=== PATIENT | female | born 1975 | race Hispanic/Latino ===

== ENCOUNTER 2017-01-12 00:09 | Inpatient (IN) | payer OTHER ==
[2017-01-11 00:21] VITALS: BP 152/77
[~2017-01-12] VITALS: Ht 149.9 cm; Wt 72.6 kg
[2017-01-12] VITALS (18 sets, daily range): BP systolic 127–196; BP diastolic 38–89
--- NOTE | 2017-01-12 00:39 | NUR ---
0021 Patient arrived on unit and escorted to room 209. Pt instructed to provide urine sample for UA and DOA and change into gown. Sai Arboleda RNC noticed patient stickers/face sheet different from records in that last name on stickers is Ramirez and prenatals have Robyn. Pt states correct spelling is Robyn. RN call to admitting at 0040 re: same.
[2017-01-12 01:38] LABS: HEMATOCRIT 30.8 % (37.0-47.0); HEMOGLOBIN 10.5 g/dl (12.0-16.0); IMMATURE GRANULOCYTES 0.5 % (0.0-1.0); MEAN CELL VOLUME 87.5 fL CALC (80.0-100.0); MEAN CORPUSCULAR HGB 29.8 pG CALC (26.0-32.0); MEAN CORPUSCULAR HGB CONC 34.1 g/L CALC (32.0-36.0); NEUT# 4.94 thou/uL (2.00-7.15); RED BLOOD COUNT 3.52 mill/uL (4.20-5.60); RED CELL DISTRI WIDTH 13.7 % (11.5-15.5)
[2017-01-12 01:39] LABS: URINE BILIRUBIN - DIPSTICK NEGATIVE (NEGATIVE); URINE BLOOD DIPSTICK LARGE (NEGATIVE); URINE COLOR YELLOW; URINE GLUCOSE - DIPSTICK NEGATIVE (NEGATIVE); URINE KETONE NEGATIVE (NEGATIVE); URINE LEUK ESTERASE SMALL (Negative); URINE NITRITE - DIPSTICK POSITIVE (Negative); URINE PROTEIN - DIPSTICK 30 mg/dL (NEG-TRACE); URINE SPECIFIC GRAVITY 1.025; URINE UROBILINOGEN - DIPSTICK 0.2 E.U./dL (0.2)
[2017-01-12 01:44] LABS: BARBITURATES NEGATIVE (NEGATIVE); COCAINE NEGATIVE (NEGATIVE); METHADONE NEGATIVE (NEGATIVE); OXCYCODONE NEGATIVE (NEGATIVE); TETRAHYDROCANNABIONOL NEGATIVE (NEGATIVE); TRICYLIC ANTIDEPRESSANTS NEGATIVE (NEGATIVE)
--- NOTE | 2017-01-12 01:55 | NUR ---
EFM REMOVED. REACTIVE NST. FHT BASELINE 130 WITH MODERATE VARIABILITY AND ACCELS, NO DECELS NOTED. PT HAS OCCASIONAL CONTRACTIONS WITH IRRITIBILITY. PT DENIES ANY CONTRACTIONS OR PAIN. PT HAS NOT HAD ANY FOOD OR DRINK SINCE 1500. NOTED ELEVATED BP. PT DENIES ANY HEADACHE, EPIGASTRIC PAIN, DTR +2. SHAVED LOWER ABDOMEN. HIBICLENS SCRUB PERFORMED. ASSESSMENT COMPLETED CHARTED. SIGNIFICANT OTHER SLEEPING IN RECLINER. PT DENIES ANY NEEDS. ENCOURAGED PT TO CALL WITH NEEDS OR CONCERNS.
[2017-01-12 02:00] LABS: URINE BACTERIA MANY hpf; URINE CLARITY SL CLOUDY; URINE RBC 25-50 RBC/hpf (0-5); URINE SQUAMOUS EPITHELIAL CELL FEW EPI/hpf (0-FEW)
[2017-01-12 02:09] LABS: ALKALINE PHOSPHATASE 126 u/l (38-126); ANION GAP 14 (6-22 (CALC)); BILIRUBIN, TOTAL 0.3 mg/dL (0.0-1.4); BUN 8 mg/dL (7-17); BUN/CREATININE RATIO 20 (12-20 (CALC)); CALCIUM 9.2 mg/dL (8.4-10.2); CARBON DIOXIDE 18 mmol/l (22-30); CHLORIDE 112 mmol/l (95-108); CREATININE 0.4 mg/dL (0.5-1.0); GFR > 60 ML/MIN (>=60 (CALC)); GFR FOR AFR.AMER. > 60 ML/MIN (>=60 (CALC)); GLUCOSE 79 mg/dL (65-105); SGOT/AST 13 u/l (14-36); SGPT/ALT 23 u/l (9-52); SODIUM 140 mmol/l (137-146); TOTAL PROTEIN 5.6 g/dL (6.3-8.2)
[2017-01-12] MEDS ORDERED: PNV PO (02:43)
--- NOTE | 2017-01-12 06:55 | NUR ---
REPORT RECEIVED FROM OFF GOING NURSE, PT RESTS WITH EYES CLOSED, ALLOWED TO REST.
--- NOTE | 2017-01-12 07:40 | NUR ---
PT OOB TO VOID, PT DENIES PAIN. OR NURSE TO ROOM TO SSEE PT.
--- NOTE | 2017-01-12 08:17 | NUR ---
PT PREPARED FOR OR, TO OB OR VIA WC WITH OR NURSE.
--- NOTE | 2017-01-12 10:55 | NUR ---
PT TO ROOM 209 VIA STRETCHER.
--- NOTE | 2017-01-12 11:10 | NUR ---
PT TO BED W/O PROBLEM, SETTLED PT ABLE TO DEEP BREATHE, ABLE TO MOVE TOES, SCD IN PLACE, HURST DRAINS CLEAR URINE.
--- NOTE | 2017-01-12 12:49 | NUR ---
JETT FERGUSON, FED INAFNT. STATES PAIN MED HAS HELPED.
--- NOTE | 2017-01-12 12:55 | NUR ---
REPORT TO Kelsi DUMONT RN.
--- NOTE | 2017-01-12 12:56 | NUR ---
PT RESTS C/O PAIN, FUNDUS FIRM, LIGHT TO MOD AMT VAG BLEEDING ON PAD, NO CLOTS EXPRESSED, SCANT AMT BLEEDING AT THIS TIME.
--- NOTE | 2017-01-12 13:00 | NUR ---
RECEIVED CARE OF PT. REPORT FROM Radha PORTILLO RN. PT RESTING IN BED WITH FAMILY AT BEDSIDE. ASSESSMENT COMPLETED BY HER. CALL LIGHT WITHIN REACH.
--- NOTE | 2017-01-12 13:12 | NUR ---
BP INCREASING AT THIS TIME CHARTED. PT RATING PAIN 10+ IN ABDOMEN. LOCHIA RUBRA WITH LIGHT FLOW. NO CLOTS, NO TRICKLING. VITAL SIGNS OBTAINED. PT WITH NO COMPLAINT OF HEADACHE OR BLURRED VISION. DENIES NAUSEA. @1330 DR WONG NOTIFIED OF PT STATUS. NO NEW ORDERS AT THIS TIME. DR TO COME IN AND ASSESS PT.
--- NOTE | 2017-01-12 14:10 | NUR ---
DR WONG IN TO SEE PT, RECEIVED NEW ORDERS.
--- NOTE | 2017-01-12 15:00 | NUR ---
DILAUDID 2 MG IV GIVEN SLOWLY OVER 4 MINUTES. RESPIRATIONS AT THIS TIME 16, NON-LABORED.
--- NOTE | 2017-01-12 15:10 | NUR ---
CBC DRAWN AND SENT TO LAB.
[2017-01-12 15:21] LABS: HEMATOCRIT 26.9 % (37.0-47.0); HEMOGLOBIN 8.9 g/dl (12.0-16.0); IMMATURE GRANULOCYTES 0.5 % (0.0-1.0); MEAN CELL VOLUME 88.5 fL CALC (80.0-100.0); MEAN CORPUSCULAR HGB 29.3 pG CALC (26.0-32.0); MEAN CORPUSCULAR HGB CONC 33.1 g/L CALC (32.0-36.0); NEUT# 14.06 thou/uL (2.00-7.15); RED BLOOD COUNT 3.04 mill/uL (4.20-5.60); RED CELL DISTRI WIDTH 13.8 % (11.5-15.5)
--- NOTE | 2017-01-12 16:00 | NUR ---
PT VERBALIZES PAIN TO BE AT 4 AND STATES SHE HAS "LITTLE PAIN". RESPIRATIONS AT THIS TIME 14, NON-LABORED. TEMP 99.0. WILL CONTINUE TO MONITOR.
--- NOTE | 2017-01-12 18:00 | NUR ---
MORE CARE DONE IN BED. PT BRIDGED WELL WITH NO COMPLAINTS. DENIES PAIN AT THIS TIME.
--- NOTE | 2017-01-12 18:55 | NUR ---
REPORT GIVEN TO ONCOMING SHIFT. PT RESTING IN BED. FULL-LIQUID DINNER GIVEN. PT ENCOURAGED TO EAT SLOWLY. CALL LIGHT WITHIN REACH.
--- NOTE | 2017-01-12 19:30 | NUR ---
PT SLEEPING QUIETLY IN BED, AROUSES EASILY BUT DROWSY, DENIES PAIN AT THIS TIME, PT CONT ON BEDREST, ASSESSMENT DONE- WNL, IVF'S INFUSING ORDERED W/OUT DIFFICULTY, MORE PAD CHECKED- SCANT LOCHIA NOTED, PT DENIES ANY CONCERNS AT THIS TIME, PT'S TEENAGE SON AT BEDSIDE AND ROOMING IN FOR THE NIGHT, PT AND SON ENCOURAGED TO CALL NURSE FOR ANY NEEDS OR CONCERNS- BOTH VERBALIZE UNDERSTANDING.
[2017-01-13] VITALS: BP 157/80
[2017-01-13 04:00] VITALS: BP 119/70
--- NOTE | 2017-01-13 06:10 | NUR ---
PT SLEEPING QUIETLY IN BED, AROUSES EASILY, STILL REMAINS DROWSY, HURST CATHETER REMOVED W/OUT INCIDENT, MORE CARE DONE, IVF'S AND SALES ACCOUNT REPRESENTATIVE PUMP CONT INFUSING ORDERED, PT REQUESTING TO REMAIN IN BED AT THIS TIME D/T FEELING DROWSY AND SLEEPY AT THIS TIME, ENCOURAGED PT TO GET UP OOB W/ASSISTANCE SOON- VERBALIZES UNDERSTANDING, CALL HOFFMAN WITHIN REACH, PT REENCOURAGED TO CALL NURSE FOR ANY NEEDS OR CONCERNS.
--- NOTE | 2017-01-13 07:00 | NUR ---
RECEIVED CARE OF PT. SITTING UP IN BED. FAMILY AT BEDSIDE. VITALS CHARTED. ASSESSMENT COMPLETED. PT ENCOURAGED TO DRINK MORE FLUIDS AND AMBULATE THIS AM. ENCOURAGED TO CALL FOR ASSISSTANCE BEFORE GETTING OOB FIRST TIME. RIGHT LABIAL EDEMA NOTED. PT WITH NO DISCOMFORT. LOCHIA SCANT. PT DENIES PAIN MEDICATION AT THIS TIME. DENIES S/S OF DEPRESSION. PT TO REMOVE DRESSING IN SHOWER TODAY. CALL LIGHT WITHIN REACH.
[2017-01-13 07:20] VITALS: BP 140/69
--- NOTE | 2017-01-13 08:30 | NUR ---
DR WONG IN TO SEE PT. RECEIVED NEW ORDERS. PT ASSISTED OUT OF BED AT THIS TIME TO RESTROOM. VOIDED 600 ML OF DARK URINE WITH RED LOCHIA, NO CLOTS. MORE CARE INSTRUCTIONS GIVEN. MORE CARE DONE BY PT. ASSISTED TO SIT UP IN CHAIR AT BEDSIDE. LINENS CHANGED. PT ASSISTED BACK TO BED. INSTRUCTED TO NOT CROSS LEGS. PT VERBALIZED UNDERSTANDING. FAMILY REMAINS AT BEDSIDE.
--- NOTE | 2017-01-13 08:30 | NUR ---
RN IV THERAPY MORPHINE SULFATE DECREASED TO 1MG/HR PER DOCTOR'S ORDERS. PT ENCOURAGED TO NOTIFY NURSE IF PAIN INCREASES.
--- NOTE | 2017-01-13 11:00 | NUR ---
PT ASSISTED OUT OF BED. VOIDED 400 ML YELLOW URINE. ASSISTED BACK TO BED. ENCOURAGED MORE AMBULATION IN HALLWAY LATER TODAY.
--- NOTE | 2017-01-13 12:00 | NUR ---
HYBRID POWERTRAIN DEVELOPMENT ENGINEER MORPHINE SULFATE DECREASED TO 1 MG/HR PER DOCTOR'S ORDER.
--- NOTE | 2017-01-13 14:00 | NUR ---
Pt encouraged to take shower to remove dressing. Pt declined shower at this time. States she will take shower later today. Shower set up.
--- NOTE | 2017-01-13 14:00 | NUR ---
Discharge planning videos offered. Pt states she will view them later. Call light within reach.
--- NOTE | 2017-01-13 17:00 | NUR ---
Dressing removed. Lang intact. Incision care reviewed.
[2017-01-13 17:25] VITALS: BP 137/72
--- NOTE | 2017-01-13 17:57 | NUR ---
Pt tolerating soft diet. family at bedside.
--- NOTE | 2017-01-13 18:45 | NUR ---
REPORT RECEIVED FROM Elaina DUMONT RN. BEDSIDE REPORTING COMPLETED. PATIENT RESTING QUIETLY IN BED, HAVING SOME INCISIONAL AND INVOLUTIONAL PAIN. WILL MEDICATE. PATIENT STATES TOOK SHOWER. INCISION OPEN TO AIR WITH JULIA INTACT. WILL CONTINUE TO MONITOR.
[2017-01-13 19:15] VITALS: BP 124/87
--- NOTE | 2017-01-13 21:47 | NUR ---
ASSESSMENT COMPLETED. PATIENT ASSISTED AND TEACHING REINFORCED WITH USE OF INCENTIVE SPIROMETER. ABLE TO ACCESS 1500 MLS. REINDED TO USE Q2 HOURS WHILE AWAKE. ADVISED TO WATCH VIDEOS AT THIS TIME IF ABLE. INSTRUCTED IN USE OF TIGR SYSTEM.
[2017-01-13 23:11] VITALS: BP 129/79
--- NOTE | 2017-01-14 01:01 | NUR ---
SETTLED AND READY FOR SLEEP. SIDE RAILS UP X 2. CALL HOFFMAN WITHIN REACH. MEDICATED FOR DISCOMFORT. NO FURTHER CLINICAL NEEDS IDENTIFIED AT THIS TIME.
--- NOTE | 2017-01-14 02:23 | NUR ---
HOLDING . DENIES PAIN OR OTHER NEEDS AT THIS TIME.
[2017-01-14 05:57] VITALS: BP 118/75
--- NOTE | 2017-01-14 05:58 | NUR ---
MEDICATED FOR PAIN. PATIENT ASKING IF ABLE TO GO HOME TODAY. STATES RIDE WILL NOT BE HERE UNTIL AFTER NOON. ADVISED SHE MAY WAIT IN HER ROOM. NO FURTHER CLINICAL INTERVENTIONS REQUIRED AT THIS TIME. REPORT PREPARED FOR ONCOMING SHIFT.
--- NOTE | 2017-01-14 07:30 | NUR ---
PT RESTING IN BED, AWAKE. ASSESSMENT DONE, STABLE, RATES PAIN 1 OUT OF 10. DISCUSSED PLAN OF CARE WITH PT, PT VERBALIZED UNDERSTANDING.
--- NOTE | 2017-01-14 13:00 | NUR ---
PT RESTING IN BED, SALINE LOCK DC'D AT THIS TIME. PT DENIES ANY NEEDS.
[2017-01-14 16:28] VITALS: BP 137/86
--- NOTE | 2017-01-14 16:28 | NUR ---
PT UP IN THE SHOWER, AND AMBULATED IN THE HALLWAYS AFTER SHOWER.
--- NOTE | 2017-01-14 18:29 | NUR ---
PT RESTING IN BED, HOLDING , POSITIVE BONDING. DENIES ANY NEEDS.
--- NOTE | 2017-01-14 19:24 | NUR ---
REPORT ON PT. RECEIVED FROM TU GONZALEZ. PT. IS UP AND AMBULATING IN HALLWAY. DENIES DISCOMFORT AT THIS TIME.
[2017-01-14 19:25] VITALS: BP 133/75
--- NOTE | 2017-01-14 20:30 | NUR ---
DR. SEVILLA IN AND REVIEWED LAB RESULT ON URINE C&S. ORDERED PO KEFLEX TO START TONIGHT AND PT. TO RECEIVE RX TOMORROW UPON DISCHARGE HOME.
[2017-01-14 23:52] VITALS: BP 139/79
--- NOTE | 2017-01-15 02:27 | NUR ---
PT SLEEPING. NO SIGNS OF DISTRESS.
--- NOTE | 2017-01-15 04:30 | NUR ---
PT SLEEPING. AWOKEN TO INFORM MOTHER WOULD BE TAKEN TO NURSERY FOR ASSESSMENT AND WT. INTERPRETATION BY 17 YR OLD SON. MOTHER VOICES UNDERSTANDING.
[2017-01-15 07:00] VITALS: BP 134/78
--- NOTE | 2017-01-15 07:27 | NUR ---
Report received from prior shift on patient.
--- NOTE | 2017-01-15 07:28 | NUR ---
Patient resting comfortably in no distress at present moment. No complaint voiced at present. Will continue to monitor for any discomfort.
--- NOTE | 2017-01-15 08:30 | NUR ---
Patient resting comfortably in no distress at present moment.
--- NOTE | 2017-01-15 09:35 | NUR ---
Dr. Diaz on unit assessing patient at present moment.
--- NOTE | 2017-01-15 09:41 | NUR ---
keflex 500mg by mouth given.
--- NOTE | 2017-01-15 10:40 | NUR ---
Patient resting comfortably in no distress.
[2017-01-15] MEDS ORDERED: NORCO1 TA2 PO (10:41)
[2017-01-15] MEDS ORDERED: KEFLEX500 MG PO (10:43)
[2017-01-15] MEDS ORDERED: IBUPROFEN600 MG PO (10:44)
[2017-01-15] MEDS ORDERED: FERR SULFATE325 MG PO (10:45)
--- NOTE | 2017-01-15 11:40 | NUR ---
Patient resting in no distress at present moment. Discharge teaching via historic interpreter [place] on care of incision care and to return in one week to make appointment with md for staple removal. Patient verbalized understanding of such. NO sexual intercourse and no tampons also reinforced to patient also.
--- NOTE | 2017-01-15 12:38 | NUR ---
Patient leaves unit in good condition with all belongings in wheelchair. Infant in secured car seat carried by significant other.
== END 2017-01-15 12:38 | disposition home or self-care (01) | DRG 765 ==
LOC: OB 00:09
PROC: 10D00Z0 Extraction of Products of Conception, High, Open Approach (ICD-10-PCS; principal; 2017-01-12)
PROC: 0UB70ZZ Excision of Bilateral Fallopian Tubes, Open Approach (ICD-10-PCS; 2017-01-12)
PROC: 0DNW0ZZ Release Peritoneum, Open Approach (ICD-10-PCS; 2017-01-12)
DX: O34.212 Maternal care for vertical scar from previous cesarean delivery (principal); D62 Acute posthemorrhagic anemia; O99.03 Anemia complicating the puerperium; D50.9 Iron deficiency anemia, unspecified; N85.8 Other specified noninflammatory disorders of uterus; O99.02 Anemia complicating childbirth; O99.284 Endocrine, nutritional and metabolic diseases complicating childbirth; E03.9 Hypothyroidism, unspecified; O99.89 Other specified diseases and conditions complicating pregnancy, childbirth and the puerperium; N73.6 Female pelvic peritoneal adhesions (postinfective); O23.43 Unspecified infection of urinary tract in pregnancy, third trimester; B96.20 Unspecified Escherichia coli [E. coli] as the cause of diseases classified elsewhere; Z91.14 Patient's other noncompliance with medication regimen; Z3A.39 39 weeks gestation of pregnancy; Z37.0 Single live birth